=== PATIENT | male | born 1935 | race Caucasian/White ===

== ENCOUNTER → 2017-11-12 | Outpatient (CLI) | payer MEDICARE, OTHER ==
[~2017-11-12] MED LIST: ALPHAGAN P5 ML; ASPIRIN81 MG PO; B-12500 MCG PO; BENAFIBER; BENEFIBER240 GM; BENEFIBER240 GM PO; BETIMOL5 M1 OD; COSAMIN ASU CA1 EACH PO; D3-5050000 UNIT; DAILY MULTIPLE1 EACH PO; LATANOPROST2.5 ML; LATANOPROST2.5 ML OU; LEVOTHYROXINE50 MCG PO; LORATADINE10 MG PO; LUMIGAN2.5 M1 OU; OMEPRAZOLE40 MG PO; TYLENOL PO; TYLENOL100 MG/1 M; ULTRAM 50MG50 MG PO; VITAMIN D35000 UNIT PO
--- NOTE | 2017-11-12 11:45 | Diagnostic Imaging Report ---
PROCEDURE:US RETROPERITONEAL ( KIDNEY ). COMPARISON:None. INDICATIONS:HEMATURIA TECHNIQUE: Mireles-scale and color sonographic images of the bilateral kidneys and bladder where obtained in transverse and longitudinal planes. FINDINGS: RIGHT KIDNEY: Measures 9.2 x 4.6 x 4.1 cm, cortex measures 1.4 cm Cysts: None Solid masses: None Stones: None Hydronephrosis: None Echogenicity: Normal LEFT KIDNEY: Measures 10.4 x 4.6 x 4.4 cm, cortex measures 1.4 cm Cysts: None Solid masses: None Stones: None Hydronephrosis: None Echogenicity: Normal CONCLUSION: Normal renal ultrasound. Lopez Willard D.O. Dictated by: Lopez Willard D.O. on 11/12/2017 at 9:41 Electronically approved by: Lopez Willard D.O. on 11/12/2017 at 9:41
--- NOTE | 2017-11-12 11:46 | Diagnostic Imaging Report ---
PROCEDURE:US PELVIC COMPARISON:Renal sonography performed on the same day. INDICATIONS:HEMATURIA FINDINGS: The bladder has a normal contour. No masses or focal wall thickening are seen. Bilateral urinary jets are noted. Prevoid volume estimated at 162.6 cc. Post void volume estimated at 92.8 cc. Prostate is mildly enlarged measuring 3.7 x 2.8 x 2.8 cm. Prostate indents the base of the bladder. CONCLUSION:No bladder wall mass or apparent cause of hematuria. Lopez Willard D.O. Dictated by: Lopez Willard D.O. on 11/12/2017 at 9:46 Electronically approved by: Lopez Willard D.O. on 11/12/2017 at 9:46
== END ==
LOC: US 08:04
PROVIDERS: ATTEND Family Medicine
DX: R31.9 Hematuria, unspecified (principal)
CPT/HCPCS: 76770; 76857

== ENCOUNTER → 2018-08-27 | Outpatient (CLI) | payer MEDICARE, OTHER ==
--- NOTE | 2018-08-27 14:17 | Diagnostic Imaging Report ---
Exam: Right shoulder 2 views History: Right shoulder pain Comparison: None. Findings: No acute, displaced fracture or dislocation. Humeral head projects appropriately adjacent to the glenoid. Advanced glenohumeral joint space narrowing with subchondral sclerosis and cystic change. Probable intra-articular osteochondral fragment projects superior to the glenoid on the external rotation radiograph. Mild acromioclavicular degenerative changes. Partially visualized right hemithorax is well aerated. Leads from an implantable cardiac device are partially visualized. 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 Signed by: Dr. Bogdan Li M.D. on 08/27/2018 2:14 PM
== END ==
LOC: RAD 13:45
DX: M25.511 Pain in right shoulder (principal)

== ENCOUNTER → 2018-11-07 | Day surgery (SDC) | payer MEDICARE, OTHER ==
[2018-10-31 11:47] LABS: BASOPHILS % 0.4 % (0.0-1.0); EOSINOPHILS # (AUTO) 0.2 (0.0-0.4); EOSINOPHILS % 5.2 % (0.0-6.0); HEMATOCRIT 27.5 % (38.2-49.6); HEMOGLOBIN 9.3 g/dL (14.0-18.0); LYMPHOCYTES # (AUTO) 1.9 (1.0-3.2); LYMPHOCYTES % 40.4 % (18.0-39.1); MEAN CORPUSCULAR HEMOGLOBIN 28.4 pg (28-32); MEAN CORPUSCULAR HGB CONC 33.8 g/dL (31-35); MEAN CORPUSCULAR VOLUME 83.8 fL (81-99); MONOCYTES # (AUTO) 0.4 (0.2-0.8); MONOCYTES % 9.1 % (4.4-11.3); NEUTROPHILS # (AUTO) 2.1 (2.1-6.9); NEUTROPHILS % 44.7 % (38.7-80.0); PLATELET COUNT 187 x10e3/uL (140-360); RED BLOOD COUNT 3.28 x10e6/uL (4.3-5.7)
[~2018-11-07] MED LIST changes: +DOCUSATE SODIU100 MG PO; +FENTANYL CITRATE/PF 100MCG/2 ML INJ ONE; +HYOSCYAMINE 0.125 MG TAB ONE; +MIRALAX17 GM PO; +MULTAQ 400MG T400 MG PO; +PANTOPRAZOLE SO40 MG PO; +PRAVASTATIN SOD20 MG PO; +PROPOFOL IV EMULSION 10 MG/ML 50 ML VIAL ONE; +ZIOPTAN; +ZIOPTAN 0.00151 EACH OU; +[UNRECOGNIZED DRUG - OTHER]
--- OUTSIDE RECORDS SUMMARY | 2018-11-07 08:09 | XMS REPORT ---
Author Author [facility] Address Unknown Phone Unavailable Care Team Providers Care Past Due Accounts Clerk Name Role Phone SOPHIE WILLIS Unavailable Unavailable MEEK IBANEZ Unavailable Unavailable Payers Payer Name Policy Type Policy Number Effective Date Expiration Date Problems This patient has no known problems. Allergies, Adverse Reactions, Alerts Allergy Name Allergy Type Status Severity Reaction(s) Onset Date Inactive Date Treating Clinician Comments amiodarone DA Active MO 2018-03-07 00:00:00 atorvastatin DA Active MO 2018-03-07 00:00:00 amiodarone DA Active MO 2017-05-17 00:00:00 atorvastatin DA Active MO 2017-05-17 00:00:00 Medications This patient has no known medications. Results Test Description Test Time Test Comments Text Results Atomic Results Result Comments SHOULDER RIGHT COMPLETE 2018-08-27 14:12:00 [place] [address] Patient Name: SHAMIR GREWAL MR #: [id number] : 1935 Age/Sex: 82/M Req #: [id number] Adm Physician: Ordered by: SOPHIE WILLIS MD Report #: [id number] Location: [facility] Room/Bed: Procedure: [id number] DX/SHOULDER RIGHT COMPLETE Exam Date: 08/27/18 Exam Time: 1400 REPORT STATUS: Signed Exam: Right shoulder 2 views History: Right shoulder pain Comparison: None. Findings: No acute, displaced fracture or dislocation. Humeral head projects appropriately adjacent to the glenoid. Advanced glenohumeral joint space narrowing with subchondral sclerosis and cystic change. Probable intra-articular osteochondral fragment projects superior to the glenoid on the external rotation radiograph. Mild acromioclavicular degenerative changes. Partially visualized right hemithorax is well aerated. Leads from an implantable cardiac device are partially visualized. 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 Signed by: Dr. Carlos Borja M.D. on 08/27/2018 2:14 PM Dictated By: CARLOS BORJA MD 1414 Transcribed By: TANK on 08/27/18 1414 COPY TO: SOPHIE WILLIS MD PELVIC (NON OB) RANKIN OR F/U 2017-11-12 09:46:00 [place] [address] Patient Name: SHAMIR GREWAL MR #: [id number] : 1935 Age/Sex: 81/M Req #: [id number] Adm Physician: Ordered by: MEEK IBANEZ MD Report #: [id number] Location: US Room/Bed: Procedure: [id number] US/US PELVIC (NON OB) RANKIN OR F/U Exam Date: 11/12/17 Exam Time: 0847 REPORT STATUS: Signed PROCEDURE: US PELVIC COMPARISON: Renal sonography performed on the same day. INDICATIONS: HEMATURIA FINDINGS: The bladder has a normal contour. No masses or focal wall thickening are seen. Bilateral urinary jets are noted. Prevoid volume estimated at 162.6 cc. Post void volume estimated at 92.8 cc. Prostate is mildly enlarged measuring 3.7 x 2.8 x 2.8 cm. Prostate indents the base of the bladder. CONCLUSION: No bladder wall mass or apparent cause of hematuria. Erik Willard D.O. Dictated by: Erik Willard D.O. on 11/12/2017 at 9:46 Electronically approved by: Erik Willard D.O. on 11/12/2017 at 9:46 Dictated By: ERIK WILLARD DO 5 Transcribed By: IDALIA on 11/12/17945 COPY TO: MEEK IBANEZ MD US RENAL RETROPERITONEAL COMP 2017-11-12 09:41:00 [place] [address] Patient Name: SHAMIR GREWAL MR #: [id number] : 1935 Age/Sex: 81/M Req #: [id number] Adm Physician: Ordered by: MEEK IBANEZ MD Report #: [id number] Location: Room/Bed: Procedure: US/US RENAL RETROPERITONEAL COMP Exam Date: 11/12/17 Exam Time: 846 REPORT STATUS: Signed PROCEDURE: US RETROPERITONEAL ( KIDNEY ). COMPARISON: None. INDICATIONS: HEMATURIA TECHNIQUE: Mireles-scale and color sonographic images of the bilateral kidneys and bladder where obtained in transverse and longitudinal planes. FINDINGS: RIGHT KIDNEY: Measures 9.2 x 4.6 x 4.1 cm, cortex measures 1.4 cm Cysts: None Solid masses: None Stones: None Hydronephrosis: None Echogenicity: Normal LEFT KIDNEY: Measures 10.4 x 4.6 x 4.4 cm, cortex measures 1.4 cm Cysts: None Solid masses: None Stones: None Hydronephrosis: None Echogenicity: Normal CONCLUSION: Normal renal ultrasound. Erik Willard D.O. Dictated by: Erik Willard D.O. on 11/12/2017 at 9:41 Electronically approved by: Erik Willard D.O. on 11/12/2017 at 9:41 Dic tated By: ERIK WILLARD DO 0 Transcribed By: IDALIA on 11/12/17940 COPY TO: MEEK IBANEZ MD
[2018-11-07 11:45] VITALS: BP 174/98
[2018-11-07 12:18] LABS: % IRON SATURATION 11 % (15-50); IRON 44 ug/dL (65-175); TOTAL IRON BINDING CAPACITY 406 ug/dL (261-478); TRANSFERRIN 290 mg/dL (174-364)
[2018-11-07 13:40] LABS: FOLATE 29.2 ng/mL (7.0-15.4)
--- NOTE | 2018-11-07 17:43 | Operative Report ---
DATE OF PROCEDURE: 11/07/2018 SURGEON: Demetrius Mcneill MD PROCEDURES: EGD with biopsies and colonoscopy with polypectomy. INDICATIONS FOR EGD: Anemia. INDICATIONS FOR COLONOSCOPY: Surveillance colonoscopy, personal history of colon polyps, anemia. MEDICATIONS: The patient was done under MAC, please see anesthesiologist's note. PROCEDURE IN DETAIL: With the patient in the left lateral decubitus position, a flexible fiberoptic Olympus gastroscope was introduced into the esophagus under direct visualization without any difficulty. There was some patchy erythema noted in distal esophagus. Some focal nodularity was noted at the GE junction that was biopsied. The scope was then advanced with ease into the stomach traversing a small hiatal hernia. Mucosa overlying the antrum and the body revealed some patchy erythema and [id number] edema and biopsies were obtained and sent to stain for H. pylori. The pylorus was intubated with ease and the scope was advanced all the way to the second portion of the duodenum. The scope was then withdrawn slowly, mucosa overlying the proximal and second portion and the duodenal bulb appeared to be within normal limits. The scope was then withdrawn back into the stomach and retroflexed, mucosa overlying the fundus and cardia appeared to be within normal limits. The previously described hiatal hernia was also noted in the retroflexed position. The scope was then straightened out, it was subsequently withdrawn, and the patient tolerated the procedure well. IMPRESSION: 1. Distal esophagitis, mild. 2. Focal nodularity, GE junction, biopsied. 3. Small hiatal hernia. 4. Gastritis, biopsied, biopsies sent to stain for Helicobacter pylori. PLAN: Follow up histology. Initiate Protonix 40 mg one p.o. q.a.m. before meals. The patient was then turned around and after adequate lubrication of the anal canal, a flexible fiberoptic Olympus colonoscope was inserted into the rectum with ease and advanced all the way to the cecum. Mucosa overlying the cecum appeared to be within normal limits. A minute polyp was removed per hot biopsy forceps from the ascending colon. The transverse and descending appeared to be within normal limits. Some diverticular disease was noted in the distal descending and the sigmoid colon. One polyp was hot biopsied from the rectum. The scope was then retroflexed into the distal rectum and small internal hemorrhoids were noted, none of which was actively bleeding. The scope was then straightened out, it was subsequently withdrawn, and the patient tolerated the procedure well. IMPRESSION: 1. Ascending colon polyp, hot biopsied. 2. Diverticulosis. 3. Rectal polyp, hot biopsied. 4. Internal hemorrhoids, none actively bleeding. PLAN: Follow up histology. Initiate high-fiber, low-fat diet. Initiate high-fiber supplement. No need for followup colonoscopy in this patient. Findings do not necessarily explain the patient's anemia. We will proceed with small bowel series and if negative, possibly a capsule endoscopy. Demetrius Mcneill MD [facility] [place] /[id number] cc: Nick Mcneill MD
== END | disposition home or self-care (01) ==
LOC: OR 08:05
PROVIDERS: ATTEND Internal Medicine Gastroenterology
DX: D64.89 Other specified anemias (principal); K63.5 Polyp of colon; K62.1 Rectal polyp; K29.70 Gastritis, unspecified, without bleeding; K21.0 Gastro-esophageal reflux disease with esophagitis; K59.00 Constipation, unspecified; K22.8 Other specified diseases of esophagus; K44.9 Diaphragmatic hernia without obstruction or gangrene; K57.30 Diverticulosis of large intestine without perforation or abscess without bleeding; K64.8 Other hemorrhoids; E03.9 Hypothyroidism, unspecified; I48.91 Unspecified atrial fibrillation; H40.9 Unspecified glaucoma; R03.0 Elevated blood-pressure reading, without diagnosis of hypertension; M13.869 Other specified arthritis, unspecified knee; Z88.8 Allergy status to other drugs, medicaments and biological substances; Z01.810 Encounter for preprocedural cardiovascular examination; Z01.812 Encounter for preprocedural laboratory examination; Z79.02 Long term (current) use of antithrombotics/antiplatelets; Z79.82 Long term (current) use of aspirin; Z68.31 Body mass index [BMI] 31.0-31.9, adult; Z95.0 Presence of cardiac pacemaker; Z86.73 Personal history of transient ischemic attack (TIA), and cerebral infarction without residual deficits; Z80.0 Family history of malignant neoplasm of digestive organs
CPT/HCPCS: 36415 ×2; 43239; 45384; 82607; 82746; 83540; 84466; 85025; 85045; 88305; 88312; 93005; J2704; J3010; 45378

== ENCOUNTER → 2018-12-13 | Outpatient (CLI) | payer MEDICARE, OTHER ==
[~2018-12-13] MED LIST changes: +DIATRIZOATE MEGL/DIATRIZOA SOD 30 ML BTL PO ONE; -FENTANYL CITRATE/PF 100MCG/2 ML INJ ONE; -HYOSCYAMINE 0.125 MG TAB ONE; +IOPAMIDOL 370 MG/ML 200 ML INFUS..BTL INJ ONE; -PROPOFOL IV EMULSION 10 MG/ML 50 ML VIAL ONE; +SODIUM CHLORIDE 0.9% 50ML 0 ML ONE; +SODIUM CHLORIDE 0.9% 50ML 50 ML ONE
[2018-12-13 11:30] LABS: CREATININE, SERUM 1.33 mg/dL (0.72-1.25)
--- NOTE | 2018-12-13 13:59 | Diagnostic Imaging Report ---
CT of the abdomen and pelvis History: Abnormal small bowel series Comparison: None available. Technique: Multidetector CT scanning of the abdomen and pelvis was performed from the level of the lung bases to the inferior pubic ramus, with intravenous administration of non-ionic contrast and with oral contrast. DOSE REDUCTION: The examination was performed according to departmental dose-optimization program which includes automated exposure control, adjustment of the mA and/or kV according to patient size and/or use of iterative reconstruction technique. Discussion: The lung bases demonstrate minimal dependent atelectasis. No focal hepatic lesions are identified. The gallbladder is present and nondistended. No opaque gallstones are identified. There is no intrahepatic or extrahepatic biliary dilatation. The spleen is within normal limits. Bilateral adrenal glands are unremarkable. The pancreas is normal. There is no pancreatic ductal dilatation or peripancreatic inflammatory stranding. The kidneys are normal in size and enhance symmetrically. There is no hydroureteronephrosis bilaterally. No kidney stones are identified. The stomach, small, and large bowel are nondistended. There is no evidence of obstruction. There is no bowel wall thickening. There are scattered colonic diverticula without evidence of acute diverticulitis. There is no free intraperitoneal air or ascites. The urinary bladder is within normal limits. No enlarged abdominal or retroperitoneal lymph nodes are identified. The abdominal aorta is of normal course and caliber. Note is made of a fat-containing umbilical hernia. There are no acute osseous abnormalities. IMPRESSION: No CT evidence of acute abdominal or pelvic pathology. Signed by: Javier Patricia MD on 12/13/2018 1:55 PM
== END ==
LOC: CT 10:46
PROVIDERS: ATTEND Internal Medicine Gastroenterology
DX: K63.9 Disease of intestine, unspecified (principal); K42.9 Umbilical hernia without obstruction or gangrene
CPT/HCPCS: 36415; 74177; 82565; 84520; Q9967

== ENCOUNTER → 2020-02-26 | Outpatient (CLI) | payer MEDICARE, OTHER ==
[~2020-02-26] MED LIST changes: -DIATRIZOATE MEGL/DIATRIZOA SOD 30 ML BTL PO ONE; -IOPAMIDOL 370 MG/ML 200 ML INFUS..BTL INJ ONE; -SODIUM CHLORIDE 0.9% 50ML 0 ML ONE; -SODIUM CHLORIDE 0.9% 50ML 50 ML ONE
--- NOTE | 2020-02-26 15:20 | Diagnostic Imaging Report ---
CT of the abdomen and pelvis, without contrast, 02/26/2020. History: Gross hematuria. Comparison: 12/13/2018. Technique: Multidetector CT scanning of the abdomen and pelvis was performed from the level of the lung bases to the inferior pubic rami without intravenous or oral contrast. Coronal and sagittal multiplanar reformations were obtained. RADIATION DOSE: Total DLP: 784 mGy*cm Dose modulation, iterative reconstruction, and/or weight based adjustment of the mA/kV was utilized to reduce the radiation dose to as low as reasonably achievable. Discussion: Examination is limited without contrast. Lung bases: There is linear atelectasis. A calcified granuloma is present in the right middle lobe. Abdomen: The liver, gallbladder, biliary tree, spleen, pancreas, adrenal glands, and kidneys are unremarkable. There is no evidence of nephrolithiasis or hydronephrosis. The abdominal aorta is within normal limits. A small hiatal hernia is noted. There is no bowel dilatation. There is no evidence of adenopathy or free fluid. A small fat-containing umbilical hernia is present. Pelvis: There is focal nodular thickening of the right anterior bladder wall. Evaluation is limited due to lack of contrast. The prostate measures 3.8 x 5.3 x 4.9 cm, ellipsoid volume 50.5 mL. There is no evidence of free fluid or adenopathy. Bones and soft tissues: Degenerative changes are present throughout the lumbar spine without evidence of lytic or sclerotic lesion. IMPRESSION: 1. Nodular right bladder wall thickening. Bladder neoplasm cannot be excluded. Recommend cystoscopy. 2. No evidence of nephrolithiasis or hydronephrosis. 3. Small fat-containing umbilical hernia. Otherwise unremarkable noncontrast exam. Signed by: Jose Ramon Dawkins on 02/26/2020 3:16 PM
== END ==
LOC: CT 11:37
PROVIDERS: ATTEND Urology
DX: R31.0 Gross hematuria (principal)
CPT/HCPCS: 74176

== ENCOUNTER → 2020-06-21 | Day surgery (SDC) | payer MEDICARE, OTHER ==
[2020-06-18 09:51] LABS: BASOPHILS % 0.7 % (0.0-1.0); EOSINOPHILS # (AUTO) 0.2 (0.0-0.4); EOSINOPHILS % 5.1 % (0.0-6.0); HEMATOCRIT 31.9 % (38.2-49.6); HEMOGLOBIN 10.9 g/dL (14.0-18.0); LYMPHOCYTES # (AUTO) 1.5 (1.0-3.2); LYMPHOCYTES % 37.3 % (18.0-39.1); MEAN CORPUSCULAR HEMOGLOBIN 32.3 pg (28-32); MEAN CORPUSCULAR HGB CONC 34.2 g/dL (31-35); MEAN CORPUSCULAR VOLUME 94.7 fL (81-99); MONOCYTES # (AUTO) 0.3 (0.2-0.8); MONOCYTES % 8.3 % (4.4-11.3); NEUTROPHILS % 48.4 % (38.7-80.0); PLATELET COUNT 174 x10e3/uL (140-360); RED BLOOD COUNT 3.37 x10e6/uL (4.3-5.7); RED CELL DISTRIBUTION WIDTH 15.5 % (11.7-14.4)
[2020-06-18 10:27] LABS: ALBUMIN 3.5 g/dL (3.5-5.0); ALBUMIN/GLOBULIN RATIO 1.3 (0.8-2.0); ANION GAP 13.2 mmol/L (8-16); CALCIUM 8.4 mg/dL (8.4-10.2); CREATININE, SERUM 1.5 mg/dL (0.72-1.25); POTASSIUM 4.2 mmol/L (3.5-5.1)
[~2020-06-21] MED LIST changes: +B&O 60MG R/S 60 MG SUPP PR ONE; +CEFTRIAXONE SOD 1 GM VIAL ONE; +DEXAMETHASONE SOD PHOS INJ 4 MG/ML VIAL ONE; +FAMOTIDINE20 MG PO; +FENTANYL CITRATE/PF 100MCG/2 ML INJ ONE; +IOPAMIDOL 300MG/ML 50ML INFUS..BTL IV ONE; +LIDOCAINE HCL 2% LOCAL INJ 5 ML SDV VIAL INJ ONE; +ONDANSETRON HCL INJ 2MG/ML 2ML 2 MG/ML VIAL ONE; +PROPOFOL IV EMULSION 10 MG/ML 20 ML VIAL ONE; +SEVOFLURANE INHAL SOLN 250 ML PEN BTL ONE; +SODIUM CHLORIDE 0.9% 1000ML 1,000 ML ONE; +SODIUM CHLORIDE 0.9% 50ML 50 ML ONE; +VYZULTA2.5 ML OU
[2020-06-21 13:15] VITALS: BP 188/94
== END | disposition home or self-care (01) ==
LOC: OR 08:14
PROVIDERS: ATTEND Urology
DX: C67.3 Malignant neoplasm of anterior wall of bladder (principal); N28.9 Disorder of kidney and ureter, unspecified; N40.1 Benign prostatic hyperplasia with lower urinary tract symptoms; N13.8 Other obstructive and reflux uropathy; N32.89 Other specified disorders of bladder; N32.3 Diverticulum of bladder; I45.10 Unspecified right bundle-branch block; I44.4 Left anterior fascicular block; I48.91 Unspecified atrial fibrillation; I10 Essential (primary) hypertension; I25.10 Atherosclerotic heart disease of native coronary artery without angina pectoris; E03.9 Hypothyroidism, unspecified; K21.9 Gastro-esophageal reflux disease without esophagitis; G62.9 Polyneuropathy, unspecified; Z88.8 Allergy status to other drugs, medicaments and biological substances; Z01.810 Encounter for preprocedural cardiovascular examination; Z01.812 Encounter for preprocedural laboratory examination; Z01.818 Encounter for other preprocedural examination; Z95.0 Presence of cardiac pacemaker; Z95.818 Presence of other cardiac implants and grafts; Z87.891 Personal history of nicotine dependence; Z86.73 Personal history of transient ischemic attack (TIA), and cerebral infarction without residual deficits
CPT/HCPCS: 36415; 52240; 71046; 74420; 80053; 85025; 88305; 93005; C1758; J0696; J1100; J2001; J2405; J2704; J3010; J7030; Q9967

== ENCOUNTER → 2020-08-11 | Day surgery (SDC) | payer MEDICARE, OTHER ==
[2020-08-06 10:04] LABS: BASOPHILS % 0.6 % (0.0-1.0); EOSINOPHILS # (AUTO) 0.2 (0.0-0.4); HEMATOCRIT 30.7 % (38.2-49.6); HEMOGLOBIN 10.5 g/dL (14.0-18.0); LYMPHOCYTES # (AUTO) 1.2 (1.0-3.2); LYMPHOCYTES % 35.8 % (18.0-39.1); MEAN CORPUSCULAR HEMOGLOBIN 32.4 pg (28-32); MEAN CORPUSCULAR HGB CONC 34.2 g/dL (31-35); MEAN CORPUSCULAR VOLUME 94.8 fL (81-99); MONOCYTES # (AUTO) 0.3 (0.2-0.8); MONOCYTES % 8.6 % (4.4-11.3); NEUTROPHILS # (AUTO) 1.7 (2.1-6.9); NEUTROPHILS % 49.7 % (38.7-80.0); PLATELET COUNT 186 x10e3/uL (140-360); RED BLOOD COUNT 3.24 x10e6/uL (4.3-5.7); RED CELL DISTRIBUTION WIDTH 15.5 % (11.7-14.4)
[2020-08-06 10:22] LABS: ALBUMIN 3.4 g/dL (3.5-5.0); ALBUMIN/GLOBULIN RATIO 1.4 (0.8-2.0); ANION GAP 11.4 mmol/L (8-16); CALCIUM 8.5 mg/dL (8.4-10.2); CREATININE, SERUM 1.5 mg/dL (0.72-1.25); POTASSIUM 4.4 mmol/L (3.5-5.1)
[~2020-08-11] MED LIST changes: +ACETAMINOPHEN 1000 MG/100 ML 100 ML IV ONE; -DEXAMETHASONE SOD PHOS INJ 4 MG/ML VIAL ONE; +POVIDONE IODINE 0.05% 0.05 % ML PO ONE; -SODIUM CHLORIDE 0.9% 1000ML 1,000 ML ONE
[2020-08-11 12:30] VITALS: BP 164/90
== END | disposition home or self-care (01) ==
LOC: OR 09:27 → EDBD 12:00
PROVIDERS: ATTEND Urology
DX: C67.9 Malignant neoplasm of bladder, unspecified (principal); N40.0 Benign prostatic hyperplasia without lower urinary tract symptoms; N13.8 Other obstructive and reflux uropathy; N32.89 Other specified disorders of bladder; I12.9 Hypertensive chronic kidney disease with stage 1 through stage 4 chronic kidney disease, or unspecified chronic kidney disease; N18.9 Chronic kidney disease, unspecified; I25.10 Atherosclerotic heart disease of native coronary artery without angina pectoris; I48.91 Unspecified atrial fibrillation; I45.10 Unspecified right bundle-branch block; E78.5 Hyperlipidemia, unspecified; E03.9 Hypothyroidism, unspecified; K21.9 Gastro-esophageal reflux disease without esophagitis; F41.9 Anxiety disorder, unspecified; Z88.8 Allergy status to other drugs, medicaments and biological substances; Z01.812 Encounter for preprocedural laboratory examination; Z20.822 Contact with and (suspected) exposure to COVID-19; Z86.73 Personal history of transient ischemic attack (TIA), and cerebral infarction without residual deficits; Z95.818 Presence of other cardiac implants and grafts; Z86.16 Personal history of COVID-19; Z95.0 Presence of cardiac pacemaker; Z87.891 Personal history of nicotine dependence
CPT/HCPCS: 36415; 52005; 52235; 74420; 80053; 85025; 88305; C1758; J0131; J0696; J2001; J2405; J2704; J3010; Q9967; U0002